=== PATIENT | male | born 1985 | race Caucasian/White ===

== ENCOUNTER 2017-11-13 16:10 | Emergency (ER) | payer OTHER ==
[~2017-11-13] VITALS: Ht 177.8 cm; Wt 84.2 kg
[2017-11-13 16:36] LABS: HEMOGLOBIN 15.3 G/DL (12.5-16.6); MCH 31.4 PG (29.0-34.0); MCHC 36.4 G/DL (30.0-36.0); MCV 86.2 FL (86-99); PLATELET COUNT 143 K/uL (156-360); RBC DIS.WIDTH-CV 12.2 % (11.8-14.6); RBC DIS.WIDTH-SD 38.3 % (39-53); RED BLOOD COUNT 4.87 M/uL (4.00-5.50); WHITE BLOOD COUNT 4.9 K/uL (4.1-10.2)
[2017-11-13 16:47] LABS: CHLORIDE 100 mEq/L (99-109); POTASSIUM 3.6 mEq/L (3.7-5.4); SODIUM 137 mEq/L (136-147)
[2017-11-13 16:49] LABS: GLUCOSE 108 mg/dL (70-99)
[2017-11-13 16:54] LABS: UREA NITROGEN (BUN) 20 mg/dL (9-23)
[2017-11-13 17:02] LABS: ALBUMIN 4.3 g/dL (3.2-4.8)
[2017-11-13 17:04] LABS: TOTAL PROTEIN 7.2 g/dL (6.4-8.3)
[2017-11-13 17:06] LABS: TOTAL BILIRUBIN 1.1 mg/dL (0.0-1.0)
[2017-11-13 17:08] LABS: ALKALINE PHOSPHATASE 43 IU/L (3-129); CREATININE 1.1 mg/dL (0.6-1.3)
[2017-11-13 17:10] LABS: AST (GOT) 18 IU/L (2-34); DIRECT BILIRUBIN 0.4 mg/dL (0.0-0.3)
[2017-11-13 17:11] LABS: ALT (GPT) 19 IU/L (3-49)
[2017-11-13 17:12] LABS: GFR ESTIMATE (CALCULATED) > 59 mL/min/ (58.99-99999)
[2017-11-13 18:12] LABS: APPEARANCE CLEAR ((CLEAR)); BILIRUBIN NEGATIVE; BLOOD NEGATIVE; COLOR YELLOW ((YELLOW)); GLUCOSE (STRIP) NEGATIVE; KETONES NEGATIVE; LEUKOCYTES NEGATIVE; NITRITE NEGATIVE; PROTEIN (STRIP) 30; SPECIFIC GRAVITY 1.031 (1.000-1.030); UCUL ADDED? NO; UROBILINOGEN 0.2 MG/DL (0.2-1.0)
[2017-11-13] MEDS ORDERED: ZOFRAN ODT4 MG PO (19:08)
[2017-11-13 21:12] VITALS: BP 126/67
== END 2017-11-13 21:14 | disposition home or self-care (01) ==
LOC: EME 16:10
DX: R11.2 Nausea with vomiting, unspecified (principal); R19.7 Diarrhea, unspecified; F17.200 Nicotine dependence, unspecified, uncomplicated
CPT/HCPCS: 80048; 80076; 81003; 85027; 99281; 99284; J2405; J7030; J7120